=== PATIENT | male | born 1975 | race African-American/Black ===

== ENCOUNTER 2016-10-18 08:16 | Inpatient (IN) | payer MEDICAID ==
[~2016-10-18] VITALS: Ht 177.8 cm; Wt 81.1 kg
[~2016-10-18 08:16] MED LIST: ENAL2.5T PO; INSU100C5; INSU100V8 SQ; INSU100V9 SC; NPH,100I; NPH,100V SQ; SULF1TAB24 PO; [UNRECOGNIZED DRUG - CODE] PO
[2016-10-18] MEDS ORDERED: SODIUM CHLORIDE 0.9% 1,000 ML IV ONE ×2 (08:24→09:53)
[2016-10-18] MEDS ORDERED: SODIUM CHLORIDE 0.9% 1,000ML IVBOLUS ONE ×2 (08:30→10:30)
[2016-10-18] MEDS ORDERED: ONDANSETRON 2MG/ML, 2ML IVPush ONE (08:30)
[2016-10-18] MEDS ORDERED: SODIUM CHLORIDE FLUSH 10ML SYR IVF ONE (08:30)
[2016-10-18] MEDS ORDERED: [UNRECOGNIZED DRUG - OTHER] SC (08:59)
[2016-10-18 09:02] LABS: HEMOGLOBIN 16.8 g/dL (13.7-18.0); WHITE BLOOD COUNT 12.3 x10^3/uL (3.4-10)
[2016-10-18 09:09] LABS: PH, VENOUS 7.017 pH (7.320-7.420)
[2016-10-18 09:11] LABS: PATH.CAST-FLAG NOT PRESENT; SPERM-FLAG NOT PRESENT; SRC-FLAG NOT PRESENT; XTAL-FLAG NOT PRESENT; YLC-FLAG NOT PRESENT
[2016-10-18 09:15] LABS: BLOOD UREA NITROGEN 21 mg/dL (7-18)
[2016-10-18 09:17] LABS: ASPARTATE AMINO TRANSFERASE 25 U/L (15-37)
[2016-10-18] MEDS ORDERED: SODIUM CHLORIDE FLUSH 10ML SYR IVF PRN (10:00)
[2016-10-18] MEDS ORDERED: ONDANSETRON 2MG/ML, 2ML ONE (10:03)
[2016-10-18] MEDS ORDERED: ACETAMINOPHEN 325 MG TABLET ONE (10:21)
[2016-10-18] MEDS ORDERED: ACETAMINOPHEN 325 MG TABLET PO ONE (10:30)
[2016-10-18] MEDS: D5%-0.45NACL+KCL 20MEQ 1,000 ML IV SCH ×3 (11:01→23:06)
[2016-10-18] MEDS: ENOXAPARIN 40 MG/0.4 ML SQ SCH (11:30)
[2016-10-18] MEDS ORDERED: POLYETHYLENE GLYCOL 17 GM PACKET PO PRN (11:30)
[2016-10-18] MEDS ORDERED: ACETAMINOPHEN 325 MG TABLET PO PRN (11:30)
[2016-10-18] MEDS ORDERED: TEMAZEPAM 15 MG CAPSULE PO PRN (11:30)
[2016-10-18] MEDS ORDERED: ONDANSETRON 2MG/ML, 2ML IVPush PRN (11:30)
[2016-10-18] MEDS: SODIUM CHLORIDE 0.9% 1,000 ML IV SCH ×3 (12:17→21:33)
[2016-10-18] MEDS: REGULAR INSULIN 62.5 UNITS in SODIUM CHLORIDE 0.9% 249.375 ML IV PRN ×2 (12:24→21:18)
[2016-10-18 14:38] LABS: BLOOD UREA NITROGEN 22 mg/dL (7-18)
[2016-10-18 18:52] LABS: BLOOD UREA NITROGEN 23 mg/dL (7-18)
[2016-10-18 22:12] LABS: BLOOD UREA NITROGEN 19 mg/dL (7-18)
[2016-10-19] MEDS: SODIUM CHLORIDE 0.9% 1,000 ML IV SCH ×4 (02:01→23:44)
[2016-10-19 02:15] LABS: BLOOD UREA NITROGEN 16 mg/dL (7-18)
[2016-10-19 04:17] VITALS: BP 100/64
[2016-10-19] MEDS: D5%-0.45NACL+KCL 20MEQ 1,000 ML IV SCH ×2 (04:31→07:01)
[2016-10-19 06:23] LABS: HEMATOCRIT 46.4 % (39.2-51.8); HEMOGLOBIN 15.2 g/dL (13.7-18.0); WHITE BLOOD COUNT 7.7 x10^3/uL (3.4-10)
[2016-10-19 06:36] LABS: ASPARTATE AMINO TRANSFERASE 10 U/L (15-37); BLOOD UREA NITROGEN 15 mg/dL (7-18)
[2016-10-19] MEDS ORDERED: INSULIN DETEMIR 100 UNITS/ML, PEN SQ-INSULIN SCH (08:00)
[2016-10-19] MEDS ORDERED: SENNA/DOCUSATE TABLET PO SCH (09:00)
[2016-10-19] MEDS: ENOXAPARIN 40 MG/0.4 ML SQ SCH (11:30)
[2016-10-19] MEDS: INSULIN ASPART 100 UNITS/ML, PEN SQ-INSULIN SCH ×3 (12:21→21:55)
[2016-10-19 13:00] VITALS: BP 118/79
[2016-10-19] MEDS ORDERED: ACETAMINOPHEN 325 MG TABLET PO PRN (15:30)
[2016-10-19] MEDS ORDERED: INSULIN ASPART 100 UNITS/ML, PEN SQ-INSULIN SCH (17:30)
[2016-10-19 18:30] VITALS: BP 128/83
[2016-10-19] MEDS: INSULIN DETEMIR 100 UNITS/ML, PEN SQ-INSULIN SCH (21:12)
[2016-10-20 01:00] VITALS: BP 126/81
[2016-10-20] MEDS: SODIUM CHLORIDE 0.9% 1,000 ML IV SCH ×3 (04:01→20:00)
[2016-10-20 05:39] LABS: BLOOD UREA NITROGEN 14 mg/dL (7-18)
[2016-10-20] MEDS: INSULIN ASPART 100 UNITS/ML, PEN SQ-INSULIN SCH ×4 (08:03→20:48)
[2016-10-20] MEDS: INSULIN DETEMIR 100 UNITS/ML, PEN SQ-INSULIN SCH ×2 (08:03→20:47)
[2016-10-20 08:07] VITALS: BP 134/92
[2016-10-20] MEDS ORDERED: SENNA/DOCUSATE TABLET PO SCH ×2 (09:00)
[2016-10-20] MEDS: ENOXAPARIN 40 MG/0.4 ML SQ SCH (12:09)
[2016-10-20 16:08] VITALS: BP 116/78
[2016-10-20 20:57] VITALS: BP 123/82
[2016-10-21 02:11] VITALS: BP 138/88
[2016-10-21] MEDS: SODIUM CHLORIDE 0.9% 1,000 ML IV SCH (06:00)
[2016-10-21] MEDS: INSULIN ASPART 100 UNITS/ML, PEN SQ-INSULIN SCH (07:45)
[2016-10-21] MEDS: INSULIN DETEMIR 100 UNITS/ML, PEN SQ-INSULIN SCH (07:45)
[2016-10-21 08:17] VITALS: BP 133/84
[2016-10-21] MEDS ORDERED: SENNA/DOCUSATE TABLET PO SCH (09:00)
[2016-10-21] MEDS ORDERED: LISI5TAB7 PO (09:12)
[2016-10-21] MEDS ORDERED: INSU100I34 SC (09:12)
[2016-10-21] MEDS ORDERED: INSU100V9 SC (09:12)
== END 2016-10-21 10:00 | disposition home or self-care (01) | DRG 638 ==
LOC: ED 09:21 → EDIP 09:53 → CCU 11:09 → 4NOR 10-19 09:48
PROVIDERS: ADMIT Internal Medicine; ATTEND Internal Medicine
DX: E13.10 Other specified diabetes mellitus with ketoacidosis without coma (principal); E87.1 Hypo-osmolality and hyponatremia; N17.9 Acute kidney failure, unspecified; E87.5 Hyperkalemia; I10 Essential (primary) hypertension; E78.1 Pure hyperglyceridemia; E86.0 Dehydration; N35.9 Urethral stricture, unspecified; Z79.4 Long term (current) use of insulin; Z83.3 Family history of diabetes mellitus; Z86.14 Personal history of Methicillin resistant Staphylococcus aureus infection; Z90.79 Acquired absence of other genital organ(s); Z91.14 Patient's other noncompliance with medication regimen
CPT/HCPCS: 36415; 80048; 80053; 81001; 82010; 82803; 82947; 82962; 83036; 83690; 83735; 85025; 87081; 99291; J1650; J1815; J2405; J3480; J7030; J7050

== ENCOUNTER 2017-01-11 09:07 | Emergency (ER) | payer MEDICAID ==
[~2017-01-11] VITALS: Ht 182.9 cm; Wt 83.2 kg
[~2017-01-11 09:07] MED LIST changes: +INSU100I34 SC; +LISI5TAB7 PO; +METF-163 PO; -[UNRECOGNIZED DRUG - CODE] PO; +[UNRECOGNIZED DRUG - OTHER] SC
[2017-01-11] MEDS ORDERED: SODIUM CHLORIDE 0.9% 1,000ML IVBOLUS ONE ×2 (10:00→11:00)
[2017-01-11 10:25] LABS: HEMATOCRIT 43.5 % (39.2-51.8); HEMOGLOBIN 14.5 g/dL (13.7-18.0); PH, VENOUS 7.335 pH (7.320-7.420); WHITE BLOOD COUNT 5.8 x10^3/uL (3.4-10)
[2017-01-11 10:37] LABS: BLOOD UREA NITROGEN 19 mg/dL (7-18)
[2017-01-11 10:42] LABS: PATH.CAST-FLAG NOT PRESENT; SPERM-FLAG NOT PRESENT; SRC-FLAG NOT PRESENT; XTAL-FLAG NOT PRESENT; YLC-FLAG NOT PRESENT
[2017-01-11] MEDS ORDERED: INSULIN REGULAR 100 UNITS/ML, 3ML VIAL ONE ×2 (10:52)
[2017-01-11] MEDS ORDERED: INSULIN REGULAR 100 UNITS/ML, 3ML VIAL SQ-INSULIN ONE (11:00)
[2017-01-11 12:05] VITALS: BP 125/78
== END 2017-01-11 12:08 | disposition home or self-care (01) ==
LOC: ED 10:19
DX: E11.65 Type 2 diabetes mellitus with hyperglycemia (principal); Z79.4 Long term (current) use of insulin; Z76.0 Encounter for issue of repeat prescription; E11.10 Type 2 diabetes mellitus with ketoacidosis without coma; I10 Essential (primary) hypertension
CPT/HCPCS: 36415; 80048; 81001; 82010; 82040; 82803; 82962; 85025; 87086; 96360; 96361; 96372; 99284; J7030

== ENCOUNTER 2017-04-14 07:37 | Emergency (ER) | payer MEDICAID ==
[~2017-04-14] VITALS: Ht 182.9 cm; Wt 85.0 kg
[2017-04-14 07:39] VITALS: BP 114/78
== END 2017-04-14 09:07 | disposition home or self-care (01) ==
LOC: ED 08:20
DX: K08.89 Other specified disorders of teeth and supporting structures (principal); E11.10 Type 2 diabetes mellitus with ketoacidosis without coma; I10 Essential (primary) hypertension; E87.1 Hypo-osmolality and hyponatremia; Z79.4 Long term (current) use of insulin
CPT/HCPCS: 41800

== ENCOUNTER 2017-07-09 16:59 | Emergency (ER) | payer MEDICAID, OTHER ==
[~2017-07-09] VITALS: Ht 182.9 cm; Wt 81.3 kg
[2017-07-09 17:01] VITALS: BP 134/79
== END 2017-07-09 17:58 | disposition home or self-care (01) ==
LOC: ED 17:52
DX: N49.2 Inflammatory disorders of scrotum (principal); E11.10 Type 2 diabetes mellitus with ketoacidosis without coma; I10 Essential (primary) hypertension; E11.65 Type 2 diabetes mellitus with hyperglycemia; Z90.89 Acquired absence of other organs; Z79.4 Long term (current) use of insulin
CPT/HCPCS: 99283

== ENCOUNTER 2019-11-18 14:54 | Inpatient (IN) | payer MEDICAID ==
[~2019-11-18] VITALS: Ht 182.9 cm; Wt 88.2 kg
[~2019-11-18 14:54] MED LIST changes: -ENAL2.5T PO; +ENAL2.5T8 PO
--- NOTE | 2019-11-18 15:20 | NUR ---
PT BIB EMS FOR CO N/V ABDOMINAL PAIN FOR 2 DAYS. PT STATES HE HASNT BEEN TAKING INUSLING BUT CHECKED HIS SUGARS AND SAID THEY WERE OK. BUT STATES HE FEELS LIKE HE IS IN DKA. DENIES CP OR SOB. NO COUGH, FEVER
[2019-11-18] MEDS ORDERED: SODIUM CHLORIDE 0.9% 1,000ML IVBOLUS ONE ×2 (15:30→16:30)
[2019-11-18] MEDS ORDERED: ONDANSETRON 2MG/ML, 2ML IVPush ONE (15:30)
[2019-11-18] MEDS ORDERED: ONDANSETRON 2MG/ML, 2ML ONE (15:47)
[2019-11-18 15:49] LABS: PH, VENOUS 7.026 pH (7.320-7.420)
[2019-11-18 15:58] LABS: ANION GAP 27 mmol/L (5-15); CALCIUM 9.7 mg/dL (8.5-10.1); CHLORIDE 94 mmol/L (98-107)
[2019-11-18 16:15] LABS: MEAN CORPUSCULAR HGB CONC 31.1 g/dL (33.2-36.2); MEAN CORPUSCULAR VOLUME 90.2 fL (81-97); MEAN PLATELET VOLUME 8.2 fL (7.4-10.4); PLATELET COUNT 336 x10^3/uL (130-400); RED BLOOD COUNT 5.28 x10^6/uL (4.38-5.82); RED CELL DISTRIBUTION WIDTH 13.4 % (9.4-14.8)
[2019-11-18 16:22] LABS: MD YES
--- NOTE | 2019-11-18 16:22 | NUR ---
AWARE OF CRITICAL VALUES
[2019-11-18] MEDS: D5%-0.45NACL+KCL 20MEQ 1,000 ML IV SCH (16:26)
[2019-11-18 16:27] LABS: BASOS#(MANUAL) 0.16 x10^3/uL (0-0.1); BASOS% (MANUAL) 1 % (0-1); LYMPH#(MANUAL) 1.14 x10^3/uL (1-3.4); LYMPHS% (MANUAL) 7 % (22-44); MONOS#(MANUAL) 0.49 x10^3/uL (0.3-2.7); MONOS% (MANUAL) 3 % (2-9); SEG#(MANUAL) 14.51 x10^3/uL (1.8-6.8); SEGS% (MANUAL) 89 % (42-75)
[2019-11-18 16:28] LABS: <PLATELET ESTIMATE> ADEQUATE; <RBC MORPHOLOGY> NORMAL; PMNS WITH VACUOLES 1+
[2019-11-18 16:29] LABS: ACETONE, SERUM Large (80mg/dL) (Negative); LARGE PLATELETS 1+
[2019-11-18] MEDS ORDERED: POLYETHYLENE GLYCOL 17 GM PACKET PO PRN (16:30)
[2019-11-18] MEDS ORDERED: hydrALAzine 20 MG/ML, 1ML IVPush PRN (16:30)
[2019-11-18] MEDS ORDERED: ONDANSETRON 2MG/ML, 2ML IV PRN (16:30)
[2019-11-18] MEDS ORDERED: BISACODYL 10 MG SUPP PR PRN (16:30)
[2019-11-18] MEDS ORDERED: LABETALOL 5MG/ML, 20ML IVPush PRN (16:30)
[2019-11-18 16:59] LABS: ALKALINE PHOSPHATASE 135 U/L (45-117); BILIRUBIN,TOTAL 0.6 mg/dL (0.2-1.0); TOTAL PROTEIN 9.2 g/dL (6.4-8.2)
--- NOTE | 2019-11-18 17:00 | NUR ---
INSULIN GTT REQUESTED FROM PHARMACY. YET TO RECIEVE
[2019-11-18 17:14] LABS: ALANINE AMINOTRANSFERASE 29 U/L (12-78)
--- NOTE | 2019-11-18 17:20 | NUR ---
REPORT TO DIVINA
[2019-11-18] MEDS ORDERED: ENOXAPARIN 40 MG/0.4 ML ONE (17:41)
[2019-11-18] MEDS: REGULAR INSULIN 100 UNITS in SODIUM CHLORIDE 0.9% 99 ML IV PRN (17:50)
[2019-11-18] MEDS: ENOXAPARIN 40 MG/0.4 ML SQ SCH (17:51)
[2019-11-18] MEDS: SODIUM CHLORIDE 0.9% 1,000 ML IV SCH ×2 (18:18→23:06)
[2019-11-18 18:32] VITALS: BP 112/61
[2019-11-18 21:53] LABS: ANION GAP 27 mmol/L (5-15); CALCIUM 8.9 mg/dL (8.5-10.1); CHLORIDE 101 mmol/L (98-107)
[2019-11-19 00:07] LABS: MICROSCOPIC AUTO
[2019-11-19 01:19] LABS: ANION GAP 19 mmol/L (5-15); CALCIUM 8.8 mg/dL (8.5-10.1); CHLORIDE 104 mmol/L (98-107); CREATININE 2.43 mg/dL (0.7-1.3)
[2019-11-19] MEDS: D5%-0.45NACL+KCL 20MEQ 1,000 ML IV SCH ×3 (03:05→20:45)
[2019-11-19] MEDS: OXYcodone IR 5MG TABLET PO PRN ×2 (03:05→08:51)
[2019-11-19 04:00] VITALS: BP 122/54
[2019-11-19 05:25] LABS: CHLORIDE 107 mmol/L (98-107)
[2019-11-19 05:33] LABS: ANION GAP 12 mmol/L (5-15); CALCIUM 8.5 mg/dL (8.5-10.1); CREATININE 2.23 mg/dL (0.7-1.3)
[2019-11-19] MEDS: REGULAR INSULIN 100 UNITS in SODIUM CHLORIDE 0.9% 99 ML IV PRN (06:01)
[2019-11-19 06:44] LABS: MEAN CORPUSCULAR HEMOGLOBIN 27.8 pg (27.5-34.5); MEAN CORPUSCULAR VOLUME 87.1 fL (81-97); MEAN PLATELET VOLUME 7.4 fL (7.4-10.4); PLATELET COUNT 327 x10^3/uL (130-400); RED BLOOD COUNT 4.55 x10^6/uL (4.38-5.82); RED CELL DISTRIBUTION WIDTH 13.1 % (9.4-14.8)
[2019-11-19 07:21] LABS: BASOPHILS # (AUTO) 0.04 x10^3/uL (0-0.1); BASOPHILS % (AUTO) 0 % (0-1); EOSINOPHILS # (AUTO) 0.01 x10^3/uL (0-0.4); EOSINOPHILS % (AUTO) 0 % (1-7); LYMPHOCYTES # (AUTO) 1.33 x10^3/uL (1-3.4); LYMPHOCYTES % (AUTO) 10 % (22-44); MD SCAN; MONOCYTES # (AUTO) 0.99 x10^3/uL (0.2-0.8); MONOCYTES % (AUTO) 7 % (2-9); NEUTROPHILS # (AUTO) 11.03 x10^3/uL (1.8-6.8); NEUTROPHILS % (AUTO) 82 % (42-75)
[2019-11-19] MEDS: AMPICILLIN/SULBACTAM 1,500 MG in SODIUM CHLORIDE 0.9% 50 ML IV SCH ×3 (08:31→19:40)
[2019-11-19 09:12] LABS: ANION GAP 9 mmol/L (5-15); CALCIUM 8.5 mg/dL (8.5-10.1); CHLORIDE 109 mmol/L (98-107); CREATININE 1.99 mg/dL (0.7-1.3)
[2019-11-19 13:27] LABS: ANION GAP 8 mmol/L (5-15); CALCIUM 8.6 mg/dL (8.5-10.1); CHLORIDE 109 mmol/L (98-107); CREATININE 2.04 mg/dL (0.7-1.3)
[2019-11-19] MEDS: CHLORHEXIDINE 15 ML UDC MM SCH ×2 (16:55→20:45)
[2019-11-19] MEDS: ENOXAPARIN 40 MG/0.4 ML SQ SCH (16:55)
[2019-11-19 17:21] LABS: ANION GAP 7 mmol/L (5-15); CHLORIDE 109 mmol/L (98-107); CREATININE 1.89 mg/dL (0.7-1.3)
[2019-11-19 17:23] LABS: CALCIUM 8.7 mg/dL (8.5-10.1)
[2019-11-19 21:22] LABS: ANION GAP 7 mmol/L (5-15); CALCIUM 8.7 mg/dL (8.5-10.1); CHLORIDE 111 mmol/L (98-107); CREATININE 1.74 mg/dL (0.7-1.3)
[2019-11-20] MEDS: CHLORHEXIDINE 15 ML UDC MM SCH ×6 (00:06→20:19)
[2019-11-20 01:06] LABS: ANION GAP 6 mmol/L (5-15); CALCIUM 8.6 mg/dL (8.5-10.1); CHLORIDE 112 mmol/L (98-107)
[2019-11-20] MEDS: AMPICILLIN/SULBACTAM 1,500 MG in SODIUM CHLORIDE 0.9% 50 ML IV SCH ×4 (02:05→20:19)
[2019-11-20 04:00] VITALS: BP 115/77
[2019-11-20 05:25] LABS: CHLORIDE 112 mmol/L (98-107)
[2019-11-20 05:42] LABS: ANION GAP 8 mmol/L (5-15); CALCIUM 8.6 mg/dL (8.5-10.1); CREATININE 1.51 mg/dL (0.7-1.3)
[2019-11-20] MEDS: OXYcodone IR 5MG TABLET PO PRN (06:06)
[2019-11-20] MEDS: D5%-0.45NACL+KCL 20MEQ 1,000 ML IV SCH (06:14)
[2019-11-20] MEDS: REGULAR INSULIN 100 UNITS in SODIUM CHLORIDE 0.9% 99 ML IV PRN (08:06)
[2019-11-20 09:28] LABS: ANION GAP 10 mmol/L (5-15); CALCIUM 8.6 mg/dL (8.5-10.1); CHLORIDE 108 mmol/L (98-107); CREATININE 1.46 mg/dL (0.7-1.3)
[2019-11-20] MEDS ORDERED: LIDOCAINE/PF 1%-EPI 1:200K, 30 ML ONE (10:26)
[2019-11-20] MEDS ORDERED: MIDAZOLAM 1 MG/ML, 2ML ONE (10:52)
[2019-11-20] MEDS ORDERED: FENTANYL PF 100 MCG/2ML ONE ×2 (10:52→12:21)
[2019-11-20] MEDS ORDERED: LIDOCAINE-MPF 2% ,5ML ONE (11:18)
[2019-11-20] MEDS ORDERED: ROCURONIUM 10MG/ML,5ML ONE (11:18)
[2019-11-20] MEDS ORDERED: GLYCOPYRROLATE 0.2MG/1ML, 5ML ONE (11:18)
[2019-11-20] MEDS ORDERED: SUCCINYLCHOLINE 20 MG/ML, 10ML ONE (11:18)
[2019-11-20] MEDS ORDERED: METOCLOPRAMIDE 5 MG/ML, 2ML ONE (11:18)
[2019-11-20] MEDS ORDERED: LIDOCAINE 1%-EPI 1:100K, 30ML INFIL ONE (11:45)
[2019-11-20] MEDS ORDERED: DEXAMETHASONE 4 MG/ML, 1ML ONE (11:47)
[2019-11-20] MEDS ORDERED: PROPOFOL 10 MG/ML, 20ML ONE (11:47)
[2019-11-20] MEDS ORDERED: ONDANSETRON 2MG/ML, 2ML ONE (11:47)
[2019-11-20] MEDS ORDERED: MEPERIDINE/PF 25MG/0.5ML IVPush PRN (12:00)
[2019-11-20] MEDS ORDERED: HYDROmorphone 1 MG/ML, 1ML INJ IVPush PRN (12:00)
[2019-11-20] MEDS ORDERED: OXYcodone 5 MG/5 ML ORAL.SOL UDC PO PRN (12:00)
[2019-11-20] MEDS ORDERED: hydrALAzine 20 MG/ML, 1ML IV PRN (12:00)
[2019-11-20] MEDS ORDERED: ACETAMINOPHEN 325 MG TABLET PO PRN (12:00)
[2019-11-20] MEDS ORDERED: PROMETHAZINE 25 MG/ML, 1ML IVPush PRN (12:00)
[2019-11-20] MEDS ORDERED: LABETALOL 5MG/ML, 20ML IV PRN (12:00)
[2019-11-20] MEDS ORDERED: ALBUTEROL SULFATE 2.5 MG/3 ML NPPB PRN (12:00)
[2019-11-20] MEDS: FENTANYL PF 100 MCG/2ML IV PRN ×2 (12:20→12:28)
[2019-11-20 13:56] LABS: ANION GAP 9 mmol/L (5-15); CHLORIDE 107 mmol/L (98-107); CREATININE 1.54 mg/dL (0.7-1.3)
[2019-11-20] MEDS ORDERED: DEXTROSE 50%, 50ML SYRINGE IVPush PRN (15:00)
[2019-11-20] MEDS ORDERED: DEXTROSE 4 GM TAB.CHEW PO PRN (15:00)
[2019-11-20] MEDS ORDERED: GLUCAGON 1 MG IM PRN (15:00)
[2019-11-20] MEDS: morphine SULFATE 10 MG/ML, 1ML IVPush PRN ×2 (15:28→18:35)
[2019-11-20] MEDS: INSULIN LISPRO 100 UNITS/ML, PEN SQ-INSULIN SCH ×2 (16:00→21:00)
[2019-11-20] MEDS: INSULIN GLARGINE 100 UNITS/ML, PEN SQ-INSULIN SCH ×2 (16:55→22:04)
[2019-11-20] MEDS: ENOXAPARIN 40 MG/0.4 ML SQ SCH (16:56)
[2019-11-20] MEDS: LISINOPRIL 10 MG TABLET PO SCH (20:19)
[2019-11-20] MEDS: SODIUM CHLORIDE FLUSH 10ML SYR IVF SCH (20:20)
[2019-11-21 00:38] VITALS: BP 115/73
[2019-11-21] MEDS: CHLORHEXIDINE 15 ML UDC MM SCH ×6 (01:04→22:09)
[2019-11-21] MEDS: AMPICILLIN/SULBACTAM 1,500 MG in SODIUM CHLORIDE 0.9% 50 ML IV SCH ×4 (01:09→22:09)
[2019-11-21 04:17] VITALS: BP 140/95
[2019-11-21 05:51] LABS: CHLORIDE 100 mmol/L (98-107)
[2019-11-21 05:56] LABS: ANION GAP 10 mmol/L (5-15); CALCIUM 9.2 mg/dL (8.5-10.1); CREATININE 1.66 mg/dL (0.7-1.3)
[2019-11-21] MEDS: OXYcodone IR 5MG TABLET PO PRN ×2 (06:24→21:10)
[2019-11-21] MEDS: ACETAMINOPHEN 325 MG TABLET PO PRN ×2 (06:25→21:10)
[2019-11-21] MEDS: INSULIN LISPRO 100 UNITS/ML, PEN SQ-INSULIN SCH ×6 (07:00→21:09)
[2019-11-21 08:09] VITALS: BP 149/92
[2019-11-21 08:19] VITALS: BP 135/80
[2019-11-21] MEDS: INSULIN GLARGINE 100 UNITS/ML, PEN SQ-INSULIN SCH ×2 (09:29→21:09)
[2019-11-21] MEDS: SODIUM CHLORIDE FLUSH 10ML SYR IVF SCH ×2 (09:30→21:01)
[2019-11-21] MEDS: LISINOPRIL 10 MG TABLET PO SCH ×2 (09:34→21:00)
[2019-11-21] MEDS: ENOXAPARIN 40 MG/0.4 ML SQ SCH (17:48)
[2019-11-21 17:59] VITALS: BP 156/104
[2019-11-21 19:49] VITALS: BP 136/91
[2019-11-22 02:22] VITALS: BP 128/85
[2019-11-22] MEDS: CHLORHEXIDINE 15 ML UDC MM SCH ×6 (02:25→19:42)
[2019-11-22] MEDS: AMPICILLIN/SULBACTAM 1,500 MG in SODIUM CHLORIDE 0.9% 50 ML IV SCH ×2 (04:32→10:57)
[2019-11-22] MEDS: OXYcodone IR 5MG TABLET PO PRN ×3 (04:38→19:43)
[2019-11-22] MEDS: ACETAMINOPHEN 325 MG TABLET PO PRN ×4 (04:38→18:40)
[2019-11-22] MEDS: DOCUSATE 100 MG CAPSULE PO PRN ×2 (06:30→19:42)
[2019-11-22 08:01] VITALS: BP 163/100
[2019-11-22] MEDS: LISINOPRIL 10 MG TABLET PO SCH ×2 (08:39→19:42)
[2019-11-22] MEDS: INSULIN LISPRO 100 UNITS/ML, PEN SQ-INSULIN SCH ×3 (08:41→17:07)
[2019-11-22] MEDS: INSULIN GLARGINE 100 UNITS/ML, PEN SQ-INSULIN SCH (08:41)
[2019-11-22] MEDS: SODIUM CHLORIDE FLUSH 10ML SYR IVF SCH ×2 (08:42→19:41)
[2019-11-22 13:58] VITALS: BP 170/117
[2019-11-22 14:30] VITALS: BP 145/97
[2019-11-22] MEDS: ENOXAPARIN 40 MG/0.4 ML SQ SCH (16:30)
[2019-11-22] MEDS ORDERED: INSU100I34 SC (16:32)
[2019-11-22] MEDS ORDERED: CHLO473M MM (16:32)
[2019-11-22] MEDS ORDERED: AMOX1TAB12 PO (16:32)
[2019-11-22] MEDS ORDERED: LISI-167 PO (16:32)
[2019-11-22] MEDS ORDERED: LACT1TAB13 PO (16:32)
[2019-11-22 16:58] LABS: BASOPHILS # (AUTO) 0.02 x10^3/uL (0-0.1); BASOPHILS % (AUTO) 0 % (0-1); EOSINOPHILS % (AUTO) 2 % (1-7); LYMPHOCYTES # (AUTO) 1.73 x10^3/uL (1-3.4); LYMPHOCYTES % (AUTO) 34 % (22-44); MD NO; MEAN CORPUSCULAR HEMOGLOBIN 28.4 pg (27.5-34.5); MEAN CORPUSCULAR HGB CONC 32.5 g/dL (33.2-36.2); MEAN CORPUSCULAR VOLUME 87.4 fL (81-97); MEAN PLATELET VOLUME 7.8 fL (7.4-10.4); MONOCYTES # (AUTO) 0.45 x10^3/uL (0.2-0.8); MONOCYTES % (AUTO) 9 % (2-9); NEUTROPHILS # (AUTO) 2.75 x10^3/uL (1.8-6.8); NEUTROPHILS % (AUTO) 55 % (42-75); PLATELET COUNT 340 x10^3/uL (130-400); RED BLOOD COUNT 4.86 x10^6/uL (4.38-5.82); RED CELL DISTRIBUTION WIDTH 13.4 % (9.4-14.8)
[2019-11-22 19:17] VITALS: BP 150/91
[2019-11-22 20:05] VITALS: BP 142/90
[2019-11-22] MEDS ORDERED: LACTOBACILLUS CHEW TABLET PO SCH (21:00)
[2019-11-22] MEDS ORDERED: AMOXICILLIN/CLAV 875-125MG TABLET PO SCH (21:00)
== END 2019-11-22 20:05 | disposition home or self-care (01) | DRG 637 ==
LOC: ED 16:48 → CCU 17:00 → 4NE 11-21 00:20
PROVIDERS: ADMIT Internal Medicine; ATTEND Internal Medicine
PROC: 0CDXXZ1 Extraction of Lower Tooth, Multiple, External Approach (ICD-10-PCS; principal; 2019-11-20 11:00)
DX: E11.10 Type 2 diabetes mellitus with ketoacidosis without coma (principal); N17.0 Acute kidney failure with tubular necrosis; N39.0 Urinary tract infection, site not specified; K04.7 Periapical abscess without sinus; D72.828 Other elevated white blood cell count; E78.1 Pure hyperglyceridemia; J32.9 Chronic sinusitis, unspecified; K02.9 Dental caries, unspecified; E11.22 Type 2 diabetes mellitus with diabetic chronic kidney disease; N18.9 Chronic kidney disease, unspecified; E87.5 Hyperkalemia; I12.9 Hypertensive chronic kidney disease with stage 1 through stage 4 chronic kidney disease, or unspecified chronic kidney disease; N35.919 Unspecified urethral stricture, male, unspecified site; Z79.4 Long term (current) use of insulin; Z83.3 Family history of diabetes mellitus; Z86.14 Personal history of Methicillin resistant Staphylococcus aureus infection; Z90.79 Acquired absence of other genital organ(s); Z91.14 Patient's other noncompliance with medication regimen; Z20.828 Contact with and (suspected) exposure to other viral communicable diseases
CPT/HCPCS: 36415; J3490; 70486; 71045; 80048; 80053; 81001; 82010; 82803; 82947; 82962; 83036; 83690; 83735; 84100; 85025; 87081; 87086; 87186; 87635; 93005; G0378; J1100; J1650; J1815; J2250; J2405; J2704; J3010; J0295; J0330; J2270; J2765; J3480; J7030

== ENCOUNTER 2020-09-02 00:38 | Emergency (ER) | payer MEDICAID ==
[~2020-09-02 00:38] MED LIST changes: +AMOX1TAB12 PO; +CHLO473M MM; +LACT1TAB13 PO; +LISI-167 PO; +SULF-23 PO; -SULF1TAB24 PO
--- NOTE | 2020-09-02 00:43 | NUR ---
LABORATORY SCIENTIST: NOT IN LOBBY
--- NOTE | 2020-09-02 01:08 | NUR ---
COMMERCIAL HELICOPTER PILOT: NOT IN LOBBY
--- NOTE | 2020-09-02 01:20 | NUR ---
APPLICATION SUPPORT ADMINISTRATOR: NOT IN LOBBY
== END 2020-09-02 01:22 | disposition left against medical advice (07) ==
LOC: ED 01:08
DX: E16.2 Hypoglycemia, unspecified (principal); Z53.21 Procedure and treatment not carried out due to patient leaving prior to being seen by health care provider